=== PATIENT | male | born 1960 | race American Indian/Alaskan Native ===

== ENCOUNTER 2020-05-08 12:04 | Observation (INO) | payer OTHER ==
[2020-05-08] MEDS ORDERED: SODIUM CHLORIDE 0.9% 500 ML 500 ML IV ONE (12:16)
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
[2020-05-08 13:05] LABS: Basophils # (Auto) 0.1 K/mm3 (0.0-0.1); Basophils % (Auto) 0.8 % (0.0-1.8); Eosinophils % (Auto) 0.5 % (0.0-4.3); Hematocrit 36.1 % (35.5-45.6); Hemoglobin 12.8 gm/dl (11.8-15.2); Lymphocytes # (Auto) 0.6 K/mm3 (1.2-5.4); Lymphocytes % (Auto) 7.9 % (13.4-35.0); Mean Corpuscular HGB Conc 35 % (32-34); Mean Corpuscular Volume 82 fl (84-94); Monocytes # (Auto) 0.6 K/mm3 (0.0-0.8); Monocytes % (Auto) 8.5 % (0.0-7.3); Platelet Count 276 K/mm3 (140-440); Red Blood Count 4.42 M/mm3 (3.65-5.03)
[2020-05-08 13:22] LABS: INR 0.95 (0.87-1.13); Red Cell Distribution Width 21.1 % (13.2-15.2)
[2020-05-08 14:23] LABS: BUN/Creatinine Ratio 10; Blood Urea Nitrogen 24 mg/dL (9-20); Calcium 9.2 mg/dL (8.4-10.2); Hemolysis Index 2
[2020-05-08] MEDS ORDERED: SODIUM CHLORIDE 0.9% 1000 ML 1,000 ML IV ONE (14:25)
--- NOTE | 2020-05-08 14:30 | Cat Scan Report ---
CT HEAD WITHOUT CONTRAST INDICATION / CLINICAL INFORMATION: closed head inury, syncope. TECHNIQUE: All CT scans at this location are performed using CT dose reduction for ALARA by means of automated e xposure control. COMPARISON: None available. FINDINGS: There is diffuse hematoma in the scalp in the left parietal region. There is also possible scalp [place] right occipital region. There is no acute intracranial hemorrhage. Ventricles are normal in size without midline shift or mass effect. Old right lacunar infarct is identified. Microangiopathy is se en in the periventricular and central white matter. ADDITIONAL FINDINGS: None. IMPRESSION: 1. Diffuse scalp swelling/hematoma most significant in left parietal region and occipital region. 2. No acute intracranial hemorrhage is seen. No midline shift or mass effect. Signer Name: Caden Bullock MD Signed: 05/08/2020 2:26 PM Workstation Name: [id number]
--- NOTE | 2020-05-08 14:48 | XRay Report ---
CHEST 1 VIEW INDICATION: hx of syncope. COMPARISON: 09/04/2019 FINDINGS: Support devices: None. Heart: Within normal limits. Lungs/Pleura: No acute air space or interstitial disease. Additional findings: None. IMPRESSION: No acute findings. Signer Name: Oni Mir Jr, MD Signed: 05/08/2020 2:43 PM Workstation Name: [id number]
[2020-05-08] MEDS ORDERED: LEVOTHYROXINE 100 MCG INJ IV STA (15:04)
--- NOTE | 2020-05-08 15:05 | History and Physical Report ---
History of Present Illness Chief complaint: Im feeling ok History of present illness: 60 YO Male with Hypothyroidism, Chronic Pain Syndrome, HTN, GERD presents to ED for evaluation. Patient reports "I feel okay". Patient states that he experienced head trauma on yesterday and was subsequently seen and evaluated by his primary care physician. Patient experienced a near syncopal episode in his primary care physician's office. EMS was notified and upon arrival the patient was found to be in distress and subsequently transported to [facility] for further care and evaluation of the aforementioned symptoms. The patient was seen and evaluated in the emergency department. All lab and imaging studies reviewed. Patient was found to have volume depletion complicated by acute kidney injury, malnutrition. Patient underwent CT scan of the brain and was found to have left parietal hematoma. Patient admitted to medical floor and treated with IV fluid resuscitation therapy. Patient denies fever, chills, chest pain, palpitation, productive cough, skin rash, recent ill contacts, or known exposure to COVID-19. No prior admission for review. All medication listed at time of admission has been reconciled. Advanced care planning conducted in ED. Past History Past Medical History: GERD, hypertension, hypothyroidism, other (See HPI) Medications and Allergies Allergies Allergy/AdvReac Type Severity Reaction Status Date / Time No Known Allergies Allergy Unverified 05/08/20 12:49 Home Medications Medication Instructions Recorded Confirmed Last Taken Type Dicyclomine [Bentyl] 20 mg PO BID 05/08/20 05/08/20 Unknown History Famotidine [Acid Controller] 20 mg PO BID 05/08/20 05/08/20 Unknown History Levothyroxine Sodium 137 mcg PO DAILY 05/08/20 05/08/20 Unknown History [Levothyroxine] amLODIPine [Norvasc] 10 mg PO DAILY 05/08/20 05/08/20 Unknown History Active Meds: Active Medications Sodium Chloride (Nacl 0.9% 1000 Ml) 1,000 mls @ 999 mls/hr IV BOLUS ONE Stop: 05/08/20 15:25 Exam - Constitutional Vitals: Temp Pulse Resp BP Pulse Ox 98.4 F 74 16 107/87 100 05/08/20 13:13 05/08/20 12:49 05/08/20 12:49 05/08/20 12:49 05/08/20 12:49 HEART Score - HEART Score EKG: Non-specific Age: 45-65 Risk factors: 1-2 risk factors Troponin: Troponin T < 0.010 ng/mL (0.00-0.029) 05/08/20 12: Troponin: < normal limit - Critical Actions Critical Actions: 0-3 pts:0.9-1.7%risk of adverse cardiac event.Candidate for discharge Results - Labs CBC & Chem 7: 05/08/20 12:05/08/20 12: Labs: Abnormal lab results 05/08/20 05/08/20 05/08/20 Range/Units 12: 12: 12: MCV 82 L (84-94) fl MCHC 35 H (32-34) % RDW 21.1 H (13.2-15.2) % Lymph % (Auto) 7.9 L (13.4-35.0) % [place] % (Auto) 8.5 H (0.0-7.3) % Lymph # (Auto) 0.6 L (1.2-5.4) K/mm3 Seg Neutrophils % 82.3 H (40.0-70.0) % Sodium 133 L (137-145) mmol/L Chloride 94.6 L (98-107) mmol/L BUN 24 H (9-20) mg/dL Creatinine 2.3 H (0.8-1.3) mg/dL Glucose 103 H (75-100) mg/dL Total Creatine Kinase 582 H (55-170) units/L TSH (0.270-4.200) mlU/mL Salicylates (2.8-20.0) mg/dL Acetaminophen (10.0-30.0) ug/mL 05/08/20 05/08/20 05/08/20 Range/Units 12: 12: 12: MCV (84-94) fl MCHC (32-34) % RDW (13.2-15.2) % Lymph % (Auto) (13.4-35.0) % [place] % (Auto) (0.0-7.3) % Lymph # (Auto) (1.2-5.4) K/mm3 Seg Neutrophils % (40.0-70.0) % Sodium (137-145) mmol/L Chloride (98-107) mmol/L BUN (9-20) mg/dL Creatinine (0.8-1.3) mg/dL Glucose (75-100) mg/dL Total Creatine Kinase (55-170) units/L TSH 100.000 H (0.270-4.200) mlU/mL Salicylates < 0.3 L (2.8-20.0) mg/dL Acetaminophen 5.0 L (10.0-30.0) ug/mL Assessment and Plan - Patient Problems (1) Acute kidney injury (YECENIA) with acute tubular necrosis (ATN) Current Visit: Yes Status: Acute Plan to address problem: IV fluid resuscitation therapy, monitor urine output every shift, urine electrolytes, monitor fluid balance, BMP, repeat BMP in a.m. to monitor serum creatinine as well as GFR. Nephrology team consulted in ED. (2) Volume depletion Current Visit: Yes Status: Acute Plan to address problem: IV fluid resuscitation therapy, monitor urine output every shift, BMP, repeat BMP in a.m. to monitor serum creatinine. (3) Malnutrition Current Visit: Yes Status: Acute Qualifiers: Malnutrition type: protein-calorie malnutrition Plan to address problem: Encourage increased protein intake, supportive care, dietary supplementation. (4) Closed head injury Current Visit: Yes Status: Acute Qualifiers: Encounter type: initial encounter Qualified Code(s): S09.90XA - Unspecified injury of head, initial encounter Plan to address problem: Supportive care, CT head, neuro check, seizure precautions. (5) Hypothyroidism Current Visit: Yes Status: Acute Plan to address problem: Resume Synthroid therapy, thyroid panel, free T4 level, supportive care. (6) DVT prophylaxis Current Visit: Yes Status: Acute Plan to address problem: SCD to bilateral lower extremities while in bed, patient is ambulatory (7) Advance care planning Current Visit: Yes Status: Acute Plan to address problem: Disease education conducted, care plan discussed, prognosis discussed, diagnosis discussed, patient knowledges understanding and agreement with care plan, +30 minutes.
[2020-05-08] MEDS ORDERED: ONDANSETRON 4 MG/2 ML INJ IV PRN (16:07)
[2020-05-08] MEDS ORDERED: ALBUTEROL 2.5 MG/3 ML NEBU IH PRN (16:07)
[2020-05-08] MEDS ORDERED: ACETAMINOPHEN 325 MG TAB PO PRN (16:07)
[2020-05-08 21:10] LABS: Bacteria,Urine 1+ /HPF (Negative); Hyaline Casts,Urine 1 /LPF
[2020-05-08 21:15] LABS: Bilirubin,Urine NEG (Negative); Blood,Urine MOD (Negative); Color,Urine Yellow (Yellow); Protein,Urine <15 mg/dL mg/dL (Negative); Urobilinogen,Urine < 2.0 mg/dL (<2.0)
[2020-05-09 05:27] LABS: Hematocrit 36.8 % (35.5-45.6); Hemoglobin 12.2 gm/dl (11.8-15.2); Mean Corpuscular HGB Conc 33 % (32-34); Mean Corpuscular Volume 83 fl (84-94); Platelet Count 246 K/mm3 (140-440); Red Blood Count 4.41 M/mm3 (3.65-5.03); Red Cell Distribution Width 20.4 % (13.2-15.2)
[2020-05-09 05:44] LABS: Calcium 8.8 mg/dL (8.4-10.2)
[2020-05-09] MEDS ORDERED: LEVOTHYROXINE 25 MCG TAB PO SCH (06:00)
[2020-05-09] MEDS ORDERED: LEVOTHYROXINE 112 MCG TAB PO SCH (06:00)
[2020-05-09 06:40] LABS: Anisocytosis 1+; Band Neutrophils # (Manual) 0.2 K/mm3; Platelet Estimate Consistent w Auto; Total Cells Counted 100
[2020-05-09 06:48] VITALS: BP 70/45
[2020-05-09] MEDS ORDERED: NON-FORMULARY EACH (Levothyroxine Sodium [Levothyroxine] 137 MCG Capsule) PO SCH (10:00)
--- NOTE | 2020-05-09 16:05 | Discharge Summary ---
Providers - Providers Date of Admission: 05/08/20 16:07 Date of discharge: 05/09/20 Attending physician: JOSE WOODRUFF 05/08/20 18:12 Consult to Physician [CONS] Routine Comment: Consulting Provider: SHAR HUTCHINSON Physician Instructions: Reason For Exam: bradley 05/09/20 06:40 Consult to Wound/ET Nurse [CONS] Routine Reason For Exam: wound eval Primary care physician: [employer] TRANSACTION COORDINATOR Hospitalization Condition: Stable Disposition: DC-01 TO HOME OR SELFCARE Core Measure Documentation - Palliative Care Palliative Care/ Comfort Measures: Not Applicable Exam - Constitutional Vitals: Temp Pulse Resp BP Pulse Ox 101.0 F H 75 16 70/45 100 05/09/20 06:25 05/09/20 06:25 05/09/20 06:25 05/09/20 06:25 05/09/20 08:36 General appearance: Present: no acute distress, well-nourished - EENT Eyes: Present: PERRL ENT: hearing intact, clear oral mucosa - Neck Neck: Present: supple, normal ROM - Respiratory Respiratory effort: normal Respiratory: bilateral: CTA - Cardiovascular Heart rate: 78 Rhythm: regular Heart Sounds: Present: S1 & S2. Absent: rub, click - Extremities Extremities: pulses symmetrical, No edema Peripheral Pulses: within normal limits - Abdominal General gastrointestinal: Present: soft, non-tender, non-distended, normal bowel sounds Male genitourinary: Present: normal - Integumentary Integumentary: Present: clear, warm, dry - Musculoskeletal Musculoskeletal: gait normal, strength equal bilaterally - Psychiatric Psychiatric: appropriate mood/affect, intact judgment & insight - Neurologic Neurologic: CNII-XII intact, moves all extremities Plan Follow up with: PRIMARY CARE, [Primary Care Provider] - 3-5 Days
--- NOTE | 2020-05-09 16:07 | Progress Note ---
Assessment and Plan - Patient Problems (1) Acute kidney injury (YECENIA) with acute tubular necrosis (ATN) Current Visit: Yes Status: Acute (2) Hypothyroidism Current Visit: Yes Status: Acute (3) DVT prophylaxis Current Visit: Yes Status: Acute Subjective Date of service: 05/09/20 Objective - Constitutional Vitals: Vital Signs - 12hr 05/09/20 05/09/20 05/09/20 04:31 05:24 05:27 Temperature 101.7 F H Pulse Rate 91 H 81 Respiratory 16 17 17 Rate Blood Pressure 71/48 130/93 O2 Sat by Pulse 97 98 Oximetry 05/09/20 05/09/20 06:25 08:36 Temperature 101.0 F H Pulse Rate 75 Respiratory 16 Rate Blood Pressure 70/45 O2 Sat by Pulse 100 100 Oximetry General appearance: Present: no acute distress, well-nourished - EENT Eyes: PERRL, EOM intact ENT: hearing intact, clear oral mucosa Ears: bilateral: normal - Neck Neck: supple, normal ROM - Respiratory Respiratory effort: normal Respiratory: bilateral: CTA - Breasts Breasts: normal - Cardiovascular Rhythm: regular Heart Sounds: Present: S1 & S2. Absent: gallop, rub Extremities: pulses intact, No edema, normal color, Full ROM - Gastrointestinal General gastrointestinal: Present: soft, non-tender, non-distended, normal bowel sounds - Genitourinary Male genitourinary: normal - Integumentary Integumentary: clear, warm, dry - Musculoskeletal Musculoskeletal: 1, strength equal bilaterally - Neurologic Neurologic: moves all extremities - Psychiatric Psychiatric: memory intact, appropriate mood/affect, intact judgment & insight - Labs CBC & Chem 7: 05/09/20 04:34 05/09/20 04:34 Labs: Abnormal lab results 05/08/20 05/08/20 05/09/20 Range/Units 15:21 19:54 04:34 MCV 83 L (84-94) fl RDW 20.4 H (13.2-15.2) % Seg Neuts % (Manual) 88.0 H (40.0-70.0) % Lymphocytes % (Manual) 7.0 L (13.4-35.0) % Lymphocytes # (Manual) 0.4 L (1.2-5.4) K/mm3 Sodium (137-145) mmol/L Chloride (98-107) mmol/L BUN (9-20) mg/dL Creatinine (0.8-1.3) mg/dL TSH (0.270-4.200) mlU/mL Free T4 0.21 L (0.76-1.46) ng/dL Urine Creatinine 131.0 H (0.1-20.0) mg/dL 05/09/20 05/09/20 Range/Units 04:34 12:19 MCV (84-94) fl RDW (13.2-15.2) % Seg Neuts % (Manual) (40.0-70.0) % Lymphocytes % (Manual) (13.4-35.0) % Lymphocytes # (Manual) (1.2-5.4) K/mm3 Sodium 133 L (137-145) mmol/L Chloride 96.6 L (98-107) mmol/L BUN 26 H (9-20) mg/dL Creatinine 2.3 H (0.8-1.3) mg/dL TSH 100.000 H (0.270-4.200) mlU/mL Free T4 (0.76-1.46) ng/dL Urine Creatinine (0.1-20.0) mg/dL HEART Score - HEART Score EKG: Non-specific Age: 45-65 Risk factors: 1-2 risk factors Troponin: Troponin T < 0.010 ng/mL (0.00-0.029) 05/08/20 15:21 Troponin: < normal limit - Critical Actions Critical Actions: 0-3 pts:0.9-1.7%risk of adverse cardiac event.Candidate for discharge
== END 2020-05-09 16:33 | disposition left against medical advice (07) ==
LOC: ED 12:04 → INTOOBSV 16:07 → 3A 16:07
PROVIDERS: ADMIT Internal Medicine; ATTEND Internal Medicine
DX: S09.90XA Unspecified injury of head, initial encounter (principal); N17.0 Acute kidney failure with tubular necrosis; E86.9 Volume depletion, unspecified; E46 Unspecified protein-calorie malnutrition; E03.9 Hypothyroidism, unspecified; N28.9 Disorder of kidney and ureter, unspecified; F17.210 Nicotine dependence, cigarettes, uncomplicated; Z68.21 Body mass index [BMI] 21.0-21.9, adult; W19.XXXA Unspecified fall, initial encounter; Y92.89 Other specified places as the place of occurrence of the external cause; Y93.89 Activity, other specified; Y99.8 Other external cause status
CPT/HCPCS: 36415; 70450; 71045; 80048; 80053; 81001; 82550; 82570; 83735; 84300; 84439; 84443; 84484; 85025; 85610; 93005; 94760; 96361; 96374; 99285; 99406; G0378; J7030; J7040; 80320; 85007; G0480